=== PATIENT | female | born 1955 | race Caucasian/White ===

== ENCOUNTER 2018-02-11 09:54 | Day surgery (SDC) | payer BC ==
[2018-02-11 10:52] LABS: ADD MAN DIFF? NO
[2018-02-11 10:58] LABS: BASOPHILS % 0.7 % (0.0-2.0); EOSINOPHILS % 0.7 % (0.0-7.0); HEMATOCRIT 42.6 % (37.0-47.0); HEMOGLOBIN 14.3 g/dl (12.0-16.0); LYMPHOCYTES # 1.5 10^3/ul (0.8-2.9); LYMPHOCYTES % 32.8 % (15.0-51.0); MEAN CORPUSCULAR HEMOGLOBIN 29.5 pg (29.0-33.0); MEAN CORPUSCULAR HGB CONC 33.6 g/dl (32.0-37.0); MONOCYTE # 0.2 10^3/ul (0.3-0.9); MONOCYTES % 5.1 % (0.0-11.0); NEUTROPHIL # 2.7 10^3/ul (1.6-7.5); NEUTROPHILS % 60.5 % (39.0-77.0); PLATELET COUNT 253 10^3/UL (140-415); RED BLOOD COUNT 4.84 10^6/ul (4.20-5.40); RED CELL DISTRIBUTION WIDTH 12.3 % (11.5-14.5)
[2018-02-11 10:58] LABS: WHITE BLOOD COUNT 4.5 10^3/ul (4.8-10.8)
[2018-02-11 11:23] LABS: ALANINE AMINOTRANSFERASE 24 IU/L (13-69); ALBUMIN 4.6 g/dl (3.3-4.9); ALBUMIN/GLOBULIN RATIO 1.35; ALKALINE PHOSPHATASE 76 IU/L (42-121); ANION GAP 13 (8-16); ASPARTATE AMINO TRANSFERASE 40 IU/L (15-46); BILIRUBIN,INDIRECT 0.7 mg/dl (0-1.1); BILIRUBIN,TOTAL 0.7 mg/dl (0.2-1.3); BLOOD UREA NITROGEN 14 mg/dl (7-20); CALCIUM 9.6 mg/dl (8.4-10.2); CARBON DIOXIDE 28 mmol/L (21-31); CHLORIDE 106 mmol/L (97-110); CREATININE 0.52 mg/dl (0.44-1.00); GLUCOSE 79 mg/dl (70-220); POTASSIUM 4.2 mmol/L (3.5-5.1); SODIUM 143 mmol/L (135-144)
[2018-02-11 11:34] LABS: ADD UMIC NO; UR ASCORBIC ACID NEGATIVE (NEGATIVE); UR BILIRUBIN (Dip) NEGATIVE (NEGATIVE); UR BLOOD (Dip) NEGATIVE (NEGATIVE); UR CLARITY CLEAR (CLEAR); UR COLOR YELLOW (YELLOW); UR GLUCOSE (Dip) NEGATIVE (NEGATIVE); UR KETONES (Dip) TRACE mg/dL (NEGATIVE); UR LEUKOCYTE ESTERASE (Dip) NEGATIVE Leu/ul (NEGATIVE); UR NITRITE (Dip) NEGATIVE (NEGATIVE); UR SPECIFIC GRAVITY (Dip) 1.017 (1.003-1.030); UR TOTAL PROTEIN (Dip) NEGATIVE (NEGATIVE); UR UROBILINOGEN (Dip) NEGATIVE (NEGATIVE)
[2018-02-11 11:53] LABS: INR 0.93; PARTIAL THROMBOPLASTIN TIME 31.6 Sec (25.0-35.0); PROTIME 12.6 Sec (11.9-14.9)
[2018-02-11] MEDS ORDERED: PROPOFOL 100 ML (12:26)
[2018-02-11] MEDS ORDERED: FENTAnyl 50 MCG/ML VIAL (12:30)
[2018-02-11] MEDS ORDERED: KETOROLAC 30 MG INJ (14:08)
[2018-02-11] MEDS ORDERED: LACTATED RINGER'S 1,000 ML IV (14:18)
[2018-02-11] MEDS ORDERED: LABETALOL HCL 20MG INJ IV (14:30)
[2018-02-11] MEDS ORDERED: METOCLOPRAMIDE 10 MG INJ IV (14:30)
[2018-02-11] MEDS ORDERED: FENTAnyl 50 MCG/ML VIAL IV ×2 (14:30)
[2018-02-11] MEDS ORDERED: OXYCODONE/ACETAMINOPHEN (5/325) TAB PO ×2 (14:30)
[2018-02-11] MEDS ORDERED: ACETAMINOPHEN 325 MG TAB PO (14:30)
[2018-02-11] MEDS ORDERED: EPHEDrine SULFATE 50 MG/5 ML SYG IV (14:30)
[2018-02-11] MEDS ORDERED: hydrALAzine 20 MG INJ IV (14:30)
[2018-02-11] MEDS ORDERED: MEPERIDINE 25 MG INJ IV (14:30)
[2018-02-11] MEDS ORDERED: ONDANSETRON 4 MG INJ IV ×2 (14:30)
[2018-02-11] MEDS ORDERED: DIPHENHYDRAMINE 50 MG INJ IV (14:30)
[2018-02-11] MEDS ORDERED: KETOROLAC 30 MG INJ IV (14:30)
[2018-02-11] MEDS ORDERED: IBUPROFEN 600 MG TAB PO (14:30)
[2018-02-11] MEDS ORDERED: morphine 2 MG INJ IV (14:30)
[2018-02-11] MEDS ORDERED: ALBUTEROL 0.083% (NEB) 2.5 MG/3 ML AMP HHN (14:30)
[2018-02-11] MEDS: FENTAnyl 50 MCG/ML VIAL IV (14:41)
[2018-02-11] MEDS: OXYCODONE/ACETAMINOPHEN (5/325) TAB PO (14:54)
== END 2018-02-11 16:03 | disposition home or self-care (01) ==
LOC: SDS 09:54
DX: N92.0 Excessive and frequent menstruation with regular cycle (principal)
CPT/HCPCS: 58558; 71045; 80053; 81003; 85025; 85610; 85730; 86850; 86900; 86901; 93005

== ENCOUNTER 2018-10-26 17:45 | Emergency (ER) | payer BC ==
[2018-10-26] MEDS: ACETAMINOPHEN 325 MG TAB PO (19:12)
== END 2018-10-26 19:28 | disposition home or self-care (01) ==
LOC: FTE 17:45
DX: H66.001 Acute suppurative otitis media without spontaneous rupture of ear drum, right ear (principal); J06.9 Acute upper respiratory infection, unspecified
CPT/HCPCS: 99283; Z7502

== ENCOUNTER 2018-10-31 18:15 | Inpatient (IN) | payer BC ==
[2018-10-31 18:52] LABS: ADD MAN DIFF? NO
[2018-10-31 18:54] LABS: BASOPHILS % 0.4 % (0.0-2.0); HEMATOCRIT 38.3 % (37.0-47.0); HEMOGLOBIN 12.9 g/dl (12.0-16.0); LYMPHOCYTES # 1.5 10^3/ul (0.8-2.9); LYMPHOCYTES % 15.7 % (15.0-51.0); MEAN CORPUSCULAR HEMOGLOBIN 29.3 pg (29.0-33.0); MEAN CORPUSCULAR HGB CONC 33.7 g/dl (32.0-37.0); MEAN CORPUSCULAR VOLUME 86.8 fl (82.0-101.0); MEAN PLATELET VOLUME 9.9 fl (7.4-10.4); MONOCYTE # 0.5 10^3/ul (0.3-0.9); MONOCYTES % 5.4 % (0.0-11.0); NEUTROPHIL # 7.6 10^3/ul (1.6-7.5); NEUTROPHILS % 78.2 % (39.0-77.0); PLATELET COUNT 343 10^3/UL (140-415); RED BLOOD COUNT 4.41 10^6/ul (4.20-5.40); RED CELL DISTRIBUTION WIDTH 12.7 % (11.5-14.5)
[2018-10-31 18:54] LABS: WHITE BLOOD COUNT 9.8 10^3/ul (4.8-10.8)
[2018-10-31] MEDS: ALBUTEROL 0.5% (NEB) 2.5 MG/0.5 ML AMP INH (18:55)
[2018-10-31 18:56] LABS: ADD UMIC YES; UR ASCORBIC ACID NEGATIVE (NEGATIVE); UR BILIRUBIN (Dip) NEGATIVE (NEGATIVE); UR BLOOD (Dip) 1+ mg/dL (NEGATIVE); UR CLARITY CLEAR (CLEAR); UR COLOR YELLOW (YELLOW); UR GLUCOSE (Dip) NEGATIVE (NEGATIVE); UR KETONES (Dip) TRACE mg/dL (NEGATIVE); UR LEUKOCYTE ESTERASE (Dip) NEGATIVE Leu/ul (NEGATIVE); UR NITRITE (Dip) NEGATIVE (NEGATIVE); UR RBC 2 /HPF (0-5); UR SPECIFIC GRAVITY (Dip) 1.011 (1.003-1.030); UR TOTAL PROTEIN (Dip) NEGATIVE (NEGATIVE); UR UROBILINOGEN (Dip) NEGATIVE (NEGATIVE); UR WBC 0 /HPF (0-5)
[2018-10-31] MEDS: SODIUM CHLORIDE 0.9% 1L BAG IV* (19:02)
[2018-10-31] MEDS: METHYLPREDNISOLONE 125 MG INJ IV (19:02)
[2018-10-31] MEDS: LEVOFLOXACIN 750MG/D5W (PMX) 150 ML IVPB (19:02)
[2018-10-31] MEDS: IBUPROFEN 600 MG TAB PO (19:03)
[2018-10-31 19:11] LABS: ALANINE AMINOTRANSFERASE 23 IU/L (13-69); ALBUMIN/GLOBULIN RATIO 1.05; ALKALINE PHOSPHATASE 70 IU/L (42-121); ANION GAP 10 (5-13); ASPARTATE AMINO TRANSFERASE 38 IU/L (15-46); BILIRUBIN,INDIRECT 0.8 mg/dl (0-1.1); BILIRUBIN,TOTAL 0.8 mg/dl (0.2-1.3); BLOOD UREA NITROGEN 9 mg/dl (7-20); CALCIUM 8.8 mg/dl (8.4-10.2); CARBON DIOXIDE 26 mmol/L (21-31); CHLORIDE 101 mmol/L (97-110); CREATININE 0.55 mg/dl (0.44-1.00); Estimated GFR > 60 mL/min (>60); GLUCOSE 198 mg/dl (70-220); LIPASE 48 U/L (23-300); POTASSIUM 3.8 mmol/L (3.5-5.1); SODIUM 137 mmol/L (135-144); TOTAL PROTEIN 7.8 g/dl (6.1-8.1)
[2018-10-31 19:14] LABS: INR 1.06; PROTIME 13.9 Sec (11.9-14.9); PT RATIO 1.1
[2018-10-31 19:15] LABS: PARTIAL THROMBOPLASTIN TIME 33.7 Sec (23.0-35.0)
[2018-10-31 19:23] LABS: TROPONIN-I < 0.012 ng/ml (0.000-0.120)
[2018-10-31 19:51] LABS: LACTIC ACID 2.1 mmol/L (0.5-2.0)
[2018-10-31 21:02] LABS: LACTIC ACID 1.9 mmol/L (0.5-2.0)
[2018-10-31] MEDS ORDERED: NACL 0.9% 3 ML SYG IV (22:00)
[2018-10-31] MEDS ORDERED: ONDANSETRON 4 MG INJ IV (22:00)
[2018-10-31] MEDS ORDERED: IPRATROPIUM (NEB) 0.5 MG/2.5 ML AMP NEB (22:00)
[2018-10-31] MEDS ORDERED: LEVALBUTEROL (NEB) 0.63 MG/3 ML AMP HHN (22:00)
[2018-10-31 22:45] LABS: LACTIC ACID 1.9 mmol/L (0.5-2.0)
[2018-10-31] MEDS ORDERED: PROMETHAZINE/DM (CUP) PO (23:00)
[2018-10-31] MEDS: SOD CHLORIDE 0.9% 1,000 ML IV (23:19)
[2018-11-01] MEDS: SOD CHLORIDE 0.9% 1,000 ML IV ×3 (05:33→17:26)
[2018-11-01 06:11] LABS: HEMATOCRIT 37.9 % (37.0-47.0); HEMOGLOBIN 12.3 g/dl (12.0-16.0); MEAN CORPUSCULAR HGB CONC 32.5 g/dl (32.0-37.0); MEAN CORPUSCULAR VOLUME 89.4 fl (82.0-101.0); MEAN PLATELET VOLUME 9.9 fl (7.4-10.4); PLATELET COUNT 297 10^3/UL (140-415); RED BLOOD COUNT 4.24 10^6/ul (4.20-5.40); RED CELL DISTRIBUTION WIDTH 12.7 % (11.5-14.5)
[2018-11-01 06:11] LABS: WHITE BLOOD COUNT 7.4 10^3/ul (4.8-10.8)
[2018-11-01 06:18] LABS: ADD MAN DIFF? YES; POSITIVE DIFF @See below
[2018-11-01 06:37] LABS: ALANINE AMINOTRANSFERASE 29 IU/L (13-69); ALBUMIN 3.1 g/dl (3.3-4.9); ALBUMIN/GLOBULIN RATIO 1.03; ALKALINE PHOSPHATASE 71 IU/L (42-121); ANION GAP 6 (5-13); ASPARTATE AMINO TRANSFERASE 29 IU/L (15-46); BILIRUBIN,INDIRECT 0.3 mg/dl (0-1.1); BILIRUBIN,TOTAL 0.3 mg/dl (0.2-1.3); BLOOD UREA NITROGEN 7 mg/dl (7-20); CALCIUM 8.5 mg/dl (8.4-10.2); CARBON DIOXIDE 23 mmol/L (21-31); CHLORIDE 114 mmol/L (97-110); CREATININE 0.42 mg/dl (0.44-1.00); Estimated GFR > 60 mL/min (>60); GLUCOSE 162 mg/dl (70-220); MAGNESIUM 2.3 mg/dl (1.7-2.5); SODIUM 143 mmol/L (135-144); TOTAL PROTEIN 6.1 g/dl (6.1-8.1)
[2018-11-01] MEDS: LEVOFLOXACIN 750MG/D5W (PMX) 150 ML IVPB (06:42)
[2018-11-01 07:26] LABS: ANISOCYTOSIS 1+ (0-0); BAND NEUTROPHILS % (M) 1 % (0-4); LYMPHOCYTES #M 0.5 10^3/ul (0.8-2.9); LYMPHOCYTES % (M) 7 % (15-51); MICROCYTOSIS 1+ (0-0); MONOCYTES % (M) 1 % (0-11); PLATELET ESTIMATE NORMAL; POLYCHROMASIA 1+ (0-0); SEG NEUT #M 6.7 10^3/ul (1.6-7.5); SEGMENTED NEUTROPHILS (M) % 91 % (39-77); SMUDGE%M 5 % (0-0)
[2018-11-01] MEDS: HEPARIN 5,000 UNIT/1 ML VIAL SC ×2 (08:36→20:49)
[2018-11-01] MEDS: GUAIFENESIN/DM (SR) TAB PO ×2 (12:56→20:41)
[2018-11-02] MEDS: LEVOFLOXACIN 750MG/D5W (PMX) 150 ML IVPB (06:09)
[2018-11-02] MEDS: SOD CHLORIDE 0.9% 1,000 ML IV ×3 (06:10→22:58)
[2018-11-02] MEDS: ACETAMINOPHEN 325 MG TAB PO (08:36)
[2018-11-02] MEDS: GUAIFENESIN/DM (SR) TAB PO ×2 (08:36→20:57)
[2018-11-02] MEDS: HEPARIN 5,000 UNIT/1 ML VIAL SC ×2 (08:37→21:10)
[2018-11-02] MEDS ORDERED: VANCOMYCIN IV PER PHARMACY XX (09:30)
[2018-11-02] MEDS: VANCOMYCIN 1 GM 250 ML IVPB (11:42)
[2018-11-02] MEDS: PROMETHAZINE/DM (CUP) PO (15:05)
[2018-11-02] MEDS: VANCOMYCIN 500 MG (PMX) 100 ML IVPB (22:58)
[2018-11-03] MEDS: LEVOFLOXACIN 750MG/D5W (PMX) 150 ML IVPB (05:52)
[2018-11-03 06:36] LABS: BLOOD UREA NITROGEN 9 mg/dl (7-20)
[2018-11-03 06:36] LABS: CREATININE 0.55 mg/dl (0.44-1.00)
[2018-11-03] MEDS: GUAIFENESIN/DM (SR) TAB PO (08:37)
[2018-11-03] MEDS: ACETAMINOPHEN 325 MG TAB PO (08:38)
[2018-11-03] MEDS: PROMETHAZINE/DM (CUP) PO (08:38)
[2018-11-03] MEDS: HEPARIN 5,000 UNIT/1 ML VIAL SC (08:49)
[2018-11-03] MEDS: SOD CHLORIDE 0.9% 1,000 ML IV (09:41)
[2018-11-03] MEDS: METOCLOPRAMIDE 10 MG INJ IV (10:33)
[2018-11-03] MEDS: BENZONATATE 100 MG CAP PO ×2 (10:33→14:18)
[2018-11-03] MEDS: ONDANSETRON 4 MG INJ IV (10:37)
[2018-11-03] MEDS: VANCOMYCIN 500 MG (PMX) 100 ML IVPB (12:22)
== END 2018-11-03 18:20 | disposition home or self-care (01) | DRG 872 ==
LOC: E/R 18:15 → 6WM 20:57
DX: A41.9 Sepsis, unspecified organism (principal); J45.41 Moderate persistent asthma with (acute) exacerbation; T70.0XXA Otitic barotrauma, initial encounter; W94.0XXA Exposure to prolonged high air pressure, initial encounter; B99.9 Unspecified infectious disease; J06.9 Acute upper respiratory infection, unspecified
CPT/HCPCS: 36415; 71045; 80053; 81001; 82565; 83605; 83690; 83735; 84484; 84520; 85025; 85610; 85730; 87040-91; 87070; 87086; 93005; 94644; 96374; 96375; 99285-25